=== PATIENT | male | born 1980 | race African-American/Black ===

== ENCOUNTER 2020-05-22 10:16 | Emergency (ER) | payer OTHER ==
--- NOTE | 2020-05-22 11:44 | EDM.PDOC ---
ED HPI GENERAL MEDICAL PROBLEM - General Chief Complaint: Genitourinary Problem Stated Complaint: BLOOD IN URINE AND SORES IN MOUTH Time Seen by Provider: 05/22/20 10:33 Source of Information: Reports: Patient History Limitations: Reports: No Limitations - History of Present Illness INITIAL COMMENTS - FREE TEXT/NARRATIVE: The patient presents with sores in his mouth and hematuria. He said he noticed the sores in his mouth yesterday and the hematuria today. He has no pain with urination. He has some lower abdominal pain when he is about to urinate. He has no fever, chills, cough, congestion, runny nose, chest pain, shortness of breath, nausea or vomiting. He has no history of this before. He has no flank pain. He has no medical problems such as bleeding disorders and there is no history if his family. Onset: Gradual Duration: Day(s): (yesterday) Location: Reports: Other (mouth) Severity: Mild Improves with: Reports: None Worsens with: Reports: None Associated Symptoms: Reports: No Other Symptoms - Related Data Allergies Allergy/AdvReac Type Severity Reaction Status Date / Time No Known Allergies Allergy Verified 05/22/20 10:28 Home Meds: Home Meds . [No Known Home Meds] 05/22/20 [History] Past Medical History - Past Health History Medical/Surgical History: Denies Medical/Surgical History Social & Family History - Tobacco Use Tobacco Use Status *Q: Never Tobacco User - Caffeine Use Caffeine Use: Reports: Coffee - Recreational Drug Use Recreational Drug Use: No ED ROS GENERAL - Review of Systems Review Of Systems: See Below Constitutional: Reports: No Symptoms HEENT: Reports: Other (Sores in his mouth) Respiratory: Reports: No Symptoms Cardiovascular: Reports: No Symptoms Endocrine: Reports: No Symptoms GI/Abdominal: Reports: No Symptoms : Reports: Hematuria Musculoskeletal: Reports: No Symptoms Skin: Reports: No Symptoms Neurological: Reports: No Symptoms ED EXAM, GI/ABD - Physical Exam Exam: See Below Exam Limited By: No Limitations General Appearance: Alert, No Apparent Distress Ears: Normal External Exam Nose: Normal Inspection Throat/Mouth: Other (petechia to the oral mucosa along with larger blood blisters) Head: Atraumatic, Normocephalic Neck: Normal Inspection Respiratory/Chest: No Respiratory Distress, Lungs Clear, Normal Breath Sounds Cardiovascular: Regular Rate, Rhythm, No Edema, No Murmur GI/Abdominal Exam: Soft, Non-Tender, No Organomegaly, No Mass Back Exam: Normal Inspection Extremities: Normal Inspection Course - Vital Signs Last Recorded V/S: Last Vital Signs Temp 97.0 F 05/22/20 12:37 Pulse 72 05/22/20 12:37 Resp 16 05/22/20 12:37 BP 118/88 05/22/20 12:37 Pulse Ox 99 05/22/20 12:37 - Orders/Labs/Meds Orders: Active Orders 24 hr Category Date Time Status Peripheral IV Care [RC] . DIRECTED Care 05/22/20 12:29 Active CORONAVIRUS COVID-19 DAVID [MOLEC] Stat Lab 05/22/20 12:23 Received Sodium Chloride 0.9% [Saline Flush] Med 05/22/20 12:28 Active 10 ml FLUSH ASDIRECTED PRN Peripheral IV Insertion Adult [OM.PC] Routine Oth 05/22/20 12:28 Ordered Medication Orders Sodium Chloride (Saline Flush) 10 ml FLUSH ASDIRECTED PRN PRN Reason: Keep Vein Open Last Admin: 05/22/20 12:43 Dose: 10 ml Documented by: CARSON Labs: Laboratory Tests 05/22/20 05/22/20 05/22/20 Range/Units 11:00 11:00 11:15 WBC (4.23-9.07) K/mm3 RBC (4.63-6.08) M/mm3 Hgb (13.7-17.5) gm/dl Hct (40.1-51.0) % MCV (79.0-92.2) fl MCH (25.7-32.2) pg MCHC (32.2-35.5) g/dl RDW Std Deviation (35.1-43.9) fL Plt Count (163-337) K/mm3 MPV (9.4-12.3) fl Neut % (Auto) (34.0-67.9) % Lymph % (Auto) (21.8-53.1) % [place] % (Auto) (5.3-12.2) % Eos % (Auto) (0.8-7.0) Baso % (Auto) (0.1-1.2) % Neut # (Auto) (1.78-5.38) K/mm3 Lymph # (Auto) (1.32-3.57) K/mm3 [place] # (Auto) (0.30-0.82) K/mm3 Eos # (Auto) (0.04-0.54) K/mm3 Baso # (Auto) (0.01-0.08) K/mm3 Manual Slide Review PT 11.0 (9.7-12.0) SECONDS INR 1.03 APTT 25.3 (21.7-31.4) SECONDS D-Dimer, Quantitative 0.35 (0.19-0.50) mg/L Sodium 143 (136-145) mEq/L Potassium 4.3 (3.5-5.1) mEq/L Chloride 105 (98-107) mEq/L Carbon Dioxide 30 (21-32) mEq/L Anion Gap 12.3 (5-15) BUN 10 (7-18) mg/dL Creatinine 1.0 (0.7-1.3) mg/dL Est Cr Clr Drug Dosing 94.56 mL/min Estimated GFR (MDRD) > 60 (>60) mL/min BUN/Creatinine Ratio 10.0 L (14-18) Glucose 89 (74-106) mg/dL Calcium 9.3 (8.5-10.1) mg/dL Total Bilirubin 0.7 (0.2-1.0) mg/dL AST 16 (15-37) U/L ALT 38 (16-63) U/L Alkaline Phosphatase 72 (46-116) U/L Total Protein 8.0 (6.4-8.2) g/dl Albumin 4.1 (3.4-5.0) g/dl Globulin 3.9 gm/dL Albumin/Globulin Ratio 1.1 (1-2) Urine Color Red H (Yellow) Urine Appearance Turbid H (Clear) Urine pH 7.0 (5.0-8.0) Ur Specific Salter Path > or = 1.030 (1.005-1.030) Urine Protein 3+ H (Negative) Urine Glucose (UA) Negative (Negative) Urine Ketones Negative (Negative) Urine Occult Blood 3+ H (Negative) Urine Nitrite Negative (Negative) Urine Bilirubin 1+ H (Negative) Urine Urobilinogen 1.0 (0.2-1.0) Ur Leukocyte Esterase Negative (Negative) Urine RBC Too numerous to cnt H (0-5) /hpf Urine WBC Not seen (0-5) /hpf Ur Squamous Epith Cells Not seen (0-5) /hpf Urine Bacteria Few (FEW) /hpf Urine Mucus Not seen (FEW) /hpf Urinalysis Comment 05/22/20 Range/Units 11:21 WBC 4.52 (4.23-9.07) K/mm3 RBC 4.92 (4.63-6.08) M/mm3 Hgb 14.8 (13.7-17.5) gm/dl Hct 45.1 (40.1-51.0) % MCV 91.7 (79.0-92.2) fl MCH 30.1 (25.7-32.2) pg MCHC 32.8 (32.2-35.5) g/dl RDW Std Deviation 40.3 (35.1-43.9) fL Plt Count 3 L* (163-337) K/mm3 MPV 8.0 L (9.4-12.3) fl Neut % (Auto) 61.4 (34.0-67.9) % Lymph % (Auto) 26.8 (21.8-53.1) % [place] % (Auto) 9.7 (5.3-12.2) % Eos % (Auto) 1.5 (0.8-7.0) Baso % (Auto) 0.4 (0.1-1.2) % Neut # (Auto) 2.77 (1.78-5.38) K/mm3 Lymph # (Auto) 1.21 L (1.32-3.57) K/mm3 [place] # (Auto) 0.44 (0.30-0.82) K/mm3 Eos # (Auto) 0.07 (0.04-0.54) K/mm3 Baso # (Auto) 0.02 (0.01-0.08) K/mm3 Manual Slide Review Abnormal smear PT (9.7-12.0) SECONDS INR APTT (21.7-31.4) SECONDS D-Dimer, Quantitative (0.19-0.50) mg/L Sodium (136-145) mEq/L Potassium (3.5-5.1) mEq/L Chloride (98-107) mEq/L Carbon Dioxide (21-32) mEq/L Anion Gap (5-15) BUN (7-18) mg/dL Creatinine (0.7-1.3) mg/dL Est Cr Clr Drug Dosing mL/min Estimated GFR (MDRD) (>60) mL/min BUN/Creatinine Ratio (14-18) Glucose (74-106) mg/dL Calcium (8.5-10.1) mg/dL Total Bilirubin (0.2-1.0) mg/dL AST (15-37) U/L ALT (16-63) U/L Alkaline Phosphatase (46-116) U/L Total Protein (6.4-8.2) g/dl Albumin (3.4-5.0) g/dl Globulin gm/dL Albumin/Globulin Ratio (1-2) Urine Color (Yellow) Urine Appearance (Clear) Urine pH (5.0-8.0) Ur Specific Sal[place] Path (1.005-1.030) Urine Protein (Negative) Urine Glucose (UA) (Negative) Urine Ketones (Negative) Urine Occult Blood (Negative) Urine Nitrite (Negative) Urine Bilirubin (Negative) Urine Urobilinogen (0.2-1.0) Ur Leukocyte Esterase (Negative) Urine RBC (0-5) /hpf Urine WBC (0-5) /hpf Ur Squamous Epith Cells (0-5) /hpf Urine Bacteria (FEW) /hpf Urine Mucus (FEW) /hpf Urinalysis Comment Meds: Medications Generic Name Dose Route Start Last Admin Trade Name Freq PRN Reason Stop Dose Admin Sodium Chloride 10 ml 05/22/20 12:28 05/22/20 12:43 Saline Flush FLUSH 10 ml ASDIRECTED PRN Administration Keep Vein Open - Re-Assessments/Exams Free Text/Narrative Re-Assessment/Exam: 05/22/20 11:44 I ordered labs and a UA. The urine was grossly bloody. 05/22/20 12:18 His platelets were 3 and the other cell lines were normal. His PT, PTT and D- dimer are normal. His CMP looks good. His UA shows no UTI just blood. The patient has no history of low platelets, he has not been on any medications, and he has not been ill recently. He has no family history of low platelets. I will call [facility] and see if I can transfer him there. We have no platelets here and they have hematology/oncology. [facility] had no Heme/Onc doctors on this weekend so I called [facility]. 05/22/20 12:[address] Leos the clinical scientist/oncologist at [facility] and Dr Woodard the hospitalist and they accepted the patient. Dr Leos felt this was more ITP but they will work him up more when he gets there. Departure - Departure Time of Disposition: 12:45 Disposition: DC/Tfer to Acute Hospital 02 Condition: Fair Clinical Impression: Acute ITP, Petechiae of palate Hematuria Qualifiers: Hematuria type: gross Qualified Code(s): R31.0 - Gross hematuria - Discharge Information Referrals: PCP,None [Primary Care Provider] - Forms: ED Department Discharge Sepsis Event Note (ED) - Evaluation Sepsis Screening Result: No Definite Risk - Focused Exam Vital Signs: Vital Signs Temp Pulse Resp BP Pulse Ox 05/22/20 12:37 97.0 F 72 16 118/88 99 05/22/20 10:22 98.2 F 98 16 155/105 H 96 - My Orders Last 24 Hours: My Active Orders 05/22/20 12:23 CORONAVIRUS COVID-19 DAVID [MOLEC] Stat 05/22/20 12:28 Sodium Chloride 0.9% [Saline Flush] 10 ml FLUSH ASDIRECTED PRN Peripheral IV Insertion Adult [OM.PC] Routine 05/22/20 12:29 Peripheral IV Care [RC] . DIRECTED - Assessment/Plan Last 24 Hours: My Active Orders 05/22/20 12:23 CORONAVIRUS COVID-19 DAVID [MOLEC] Stat 05/22/20 12:28 Sodium Chloride 0.9% [Saline Flush] 10 ml FLUSH ASDIRECTED PRN Peripheral IV Insertion Adult [OM.PC] Routine 05/22/20 12:29 Peripheral IV Care [RC] . DIRECTED
[2020-05-22] MEDS ORDERED: Sodium Chloride 0.9% 10 ML Syringe FLUSH PRN (12:28)
== END 2020-05-22 13:51 ==
LOC: JD.ED 10:16
DX: R31.0 Gross hematuria (principal); D69.3 Immune thrombocytopenic purpura; Z20.822 Contact with and (suspected) exposure to COVID-19
CPT/HCPCS: 36415; 80053; 81001; 85025; 85379; 85610; 85730; 99284; U0002